=== PATIENT | female | born 1990 | race African-American/Black ===

== ENCOUNTER 2017-07-30 09:19 | Emergency (ER) | payer OTHER ==
[~2017-07-30] VITALS: Ht 170.2 cm; Wt 91.0 kg
[~2017-07-30 09:19] MED LIST: ONDA8TAB6 PO; PREN-88 PO
[2017-07-30 09:50] VITALS: BP 138/74
== END 2017-07-30 13:01 | disposition left against medical advice (07) ==
LOC: ER 13:00
DX: R53.1 Weakness (principal); R42 Dizziness and giddiness; R51 Headache; Z53.21 Procedure and treatment not carried out due to patient leaving prior to being seen by health care provider